=== PATIENT | female | born 2000 | race Caucasian/White ===

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

== ENCOUNTER → 2020-06-17 | Outpatient (CLI) | payer BC ==
[~2020-06-17] MED LIST: MEDR150D3 IM
== END | disposition home or self-care (01) ==
LOC: LAB 07:15
PROVIDERS: ATTEND Nurse Anesthetist, Certified Registered
DX: Z01.812 Encounter for preprocedural laboratory examination (principal); Z20.828 Contact with and (suspected) exposure to other viral communicable diseases
CPT/HCPCS: U0003-CS

== ENCOUNTER → 2020-06-21 | Day surgery (SDC) | payer BC ==
[~2020-06-21] MED LIST changes: +0.9 % SOD CHL for STERILE FIELD 10 ML DISP.SYRIN. IV ONE; +0.9 % SODIUM CHLORIDE 10 ML DISP.SYRIN. IV ONE; +ACETAMINOPHEN 500 MG TABLET PO ONE; +BACTERIOSTATIC SODIUM CHLORIDE 0.9% 30 ML VIAL. IJ ONE; +CEFAZOLIN SODIUM IV ONE; +DEXAMETHASONE SOD PHOS 20 MG/5 ML VIAL. ONE; +EPINEPHrine 30 MG/30 ML VIAL IM ONE; +EPINEPHrine 30 MG/30 ML VIAL ONE; +GELATIN SPONGE SIZE 12-7MM SPONGE. ONE; +GELATIN SPONGE SIZE 12-7MM SPONGE. TP ONE; +HYDROcodone/APAP 5/325MG 1 TAB TABLET PO ONE; +IPRATRPIUM/ALBUTEROL 0.5/2.5MG 3 ML NEBU. NEB PRN; +IV RINGERS SOLUTION,LACTATED 1,000 ML IV SCH; +KETOROLAC 30 MG/ML VIAL. ONE; +LIDOCAINE 1%/EPI 1:100,000 20 ML VIAL. IJ ONE; +LIDOCAINE 1%/EPI 1:100,000 20 ML VIAL. ONE; +LIDOCAINE 2% PF 5 ML VIAL. ONE; +MIDAZOLAM HCL PF 2 MG/2 ML VIAL. IV ONE; +NORMAL SALINE IV ONE; +ONDANSETRON PF 4 MG/2 ML VIAL. IV PRN; +ONDANSETRON PF 4 MG/2 ML VIAL. ONE; +OXYMETAZOLINE 0.05% NASAL SPRAY 30ML BOTTLE. NS ONE; +PROPOFOL 10,000 MCG/ML (20ML) VIAL IV ONE; +ROCURONIUM 50 MG/5 ML VIAL. ONE; +SEVOFLURANE 31 TO 60 MINUTES. IH ONE; +ceFAZolin SODIUM 1 GM VIAL ONE
[2020-06-21 08:08] LABS: BASO % 1 % (0-3); EOS # 0.2 x10^3/uL (0.0-0.7); EOS % 2 % (0-3); HEMATOCRIT 39.7 % (36.0-47.0); HEMOGLOBIN 13.1 g/dL (12.0-15.5); LYMPH % 24 % (24-48); MEAN CORPUSCULAR HEMOGLOBIN 28 pg (25-35); MEAN CORPUSCULAR HGB CONC 33 g/dL (31-37); MEAN CORPUSCULAR VOLUME 83 fL (79-100); MONO # 0.7 x10^3/uL (0.0-1.1); MONO % 8 % (0-9); NEUT # 5.5 x10^3uL (1.8-7.7); NEUT % 66 % (31-73); PLATELET COUNT 260 x10^3/uL (140-400); RED BLOOD COUNT 4.76 x10^6/uL (3.50-5.40); RED CELL DISTRIBUTION WIDTH 13.7 % (11.5-14.5); WHITE BLOOD COUNT 8.4 x10^3/uL (4.0-11.0)
[2020-06-21 08:17] LABS: CALCIUM 8.8 mg/dL (8.5-10.1); CREATININE 0.8 mg/dL (0.6-1.0); GFR 91.4; POTASSIUM 3.8 mmol/L (3.5-5.1)
[2020-06-21 08:23] LABS: ALBUMIN 3.3 g/dL (3.4-5.0); ALBUMIN/GLOBULIN RATIO 0.8 (1.0-1.7); TOTAL BILIRUBIN 0.3 mg/dL (0.2-1.0); TOTAL PROTEIN 7.3 g/dL (6.4-8.2)
[2020-06-21 08:41] LABS: U PREG PATIENT NEGATIVE (NEG)
[2020-06-21 11:28] VITALS: BP 122/70
--- NOTE | 2020-06-21 12:20 | OP ---
DATE OF SURGERY: 06/21/2020 PREOPERATIVE DIAGNOSES: Nasal obstruction with deviated nasal septum and inferior turbinate hypertrophy. POSTOPERATIVE DIAGNOSES: Nasal obstruction with deviated nasal septum and inferior turbinate hypertrophy. PROCEDURE PERFORMED: Nasal septoplasty with radiofrequency reduction of bilateral inferior nasal turbinates. The indication for the procedure is chronic nasal obstruction. The estimated blood loss is approximately 15-20 mL. ANESTHESIA: General anesthetic. DESCRIPTION OF PROCEDURE: The patient was placed on the operating room table in a supine position and given a general anesthetic and when she was safely intubated and stabilized, the table was rotated 90 degrees. Her nose was then examined and the face was prepped using Betadine. The nasal passage was also swabbed with Betadine swabs, after which the interior of the nose was suctioned and the septum was infiltrated with 1% lidocaine with epinephrine, after which the inferior turbinates were injected with sterile saline. The face was then prepped and draped after a sterile fashion. Her nose was then examined and it was established that she demonstrated a septal deviation high and to the right and a lower deviation with encroachment of the septum being displaced off the premaxillary crest. The inferior turbinates had preoperatively been established as enlarged. They had been injected with sterile saline. The inferior turbinates were then treated using Coblation by inserting a Coblation wand in the anterior one-third of the inferior turbinates at two locations on each side and ablation current was applied until there was contraction of the turbinate. This was accomplished on both sides. The septum was then addressed and a curvilinear incision was made in the left side of the nose at the mucocutaneous border and dissection was carried down between the mucoperichondrium and periosteum. The displaced premaxillary crest of the septum was then addressed by making a linear incision along the floor of the nasal septum isolating the deformed cartilaginous portion and removing it. This allowed the septum to become a midline structure in the anterior region. A crossover incision was then created just anterior to the bony septal portion and dissection carried down on both sides of the septum isolating the deviation portion that was superiorly and to the right. This area was then selectively and carefully removed with Jeff forceps. Septum then became a midline structure. A spur like deformity was noted more inferiorly that was removed with Jeff forceps. The septum now became a midline structure. The opened passageway between the mucoperichondrium was then irrigated and suctioned and no active bleeding was occurring after which the elevated mucosal membrane was then reapproximated using quilting type suture technique with dissolvable chromic suture, reapproximating it anterior to posterior. The nose was then irrigated and suctioned. No active bleeding was occurring. The treated portions of the turbinates were without any swelling or bleeding. The nasopharynx was suctioned free of blood after some irrigation and then Gelfoam was placed within the nose to control any drainage or bleeding. That completed the procedure. The patient was recovered from her anesthesia and she was taken to the recovery room in stable condition. JAN DEMPSEY DO DR: Sha JOB#: [id number] / [id number]
== END | disposition home or self-care (01) ==
LOC: SURG 07:21
PROVIDERS: ATTEND Otolaryngology
DX: J34.2 Deviated nasal septum (principal); J34.3 Hypertrophy of nasal turbinates; E88.01 Alpha-1-antitrypsin deficiency; Z79.899 Other long term (current) drug therapy
CPT/HCPCS: 36415; 80053; 81025; 85025; 85730; J0171; J0690; J1100; J1885; J2405; J2704; J3010; J7120; J2001